=== PATIENT | female | born 1965 | race Caucasian/White ===

== ENCOUNTER 2021-04-24 16:56 | Emergency (ER) | payer OTHER ==
[2021-04-24] MEDS ORDERED: NAPROXEN500 MG PO (20:03)
== END 2021-04-24 20:20 | disposition home or self-care (01) ==
LOC: FER 16:56
DX: M25.512 Pain in left shoulder (principal); Z91.81 History of falling
CPT/HCPCS: 73030

== ENCOUNTER → 2021-08-03 | Day surgery (SDC) | payer OTHER ==
[~2021-08-03] VITALS: Ht 157.5 cm; Wt 83.9 kg
[~2021-08-03] MED LIST: BUSPIRONE HCL15 MG PO; IRON325 M1 PO; NAPROXEN500 MG PO; PRILOSEC20 MG PO; PROZAC20 MG PO; ZYRTEC10 M3 PO
[2021-08-03 11:32] LABS: HCT 43.5 % (37.0-47.0); HGB 14.1 g/dl (12.5-16.0); MCH 31.9 pg (25.0-31.0); MCHC 32.4 g/dL (32.0-36.0); MCV 98.4 fL (78.0-100.0); MPV 9.9 fL (6.0-9.5); RBC 4.42 M/uL (4.20-5.40); RDW 12.6 % (11.5-14.0); WBC 5.5 K/uL (4.0-10.5)
[2021-08-03 11:44] LABS: ALBUMIN 3.7 g/dL (3.4-5.0); BILIRUBIN - TOTAL 0.7 mg/dL (0.2-1.0); BUN/CREAT RATIO (CALC) 10.9 RATIO; CREATININE 0.64 mg/dL (0.51-0.95); GLOBULIN (CALCULATION) 3.8 g/dL; POTASSIUM 4.8 mmol/L (3.5-5.1); TOTAL PROTEIN 7.5 g/dL (6.4-8.2)
== END | disposition home or self-care (01) ==
LOC: FAS 10:22
PROVIDERS: Orthopaedic Surgery
DX: M75.121 Complete rotator cuff tear or rupture of right shoulder, not specified as traumatic (principal); M25.812 Other specified joint disorders, left shoulder; M19.012 Primary osteoarthritis, left shoulder
CPT/HCPCS: 36415; 71045; 80053; 93005; C1713; J0171; J0690; J1100; J2250; J2405; J2704; J2710; J2795; J3010; J7120